=== PATIENT | female | born 1950 | race Caucasian/White ===

== ENCOUNTER 2018-05-18 21:17 | Outpatient (REF) | payer MEDICARE, SELFPAY ==
[2018-05-18 22:09] LABS: ALT 24 U/L (12-78); AST 17 U/L (15-37); Albumin 3.9 g/dL (3.4-5.0); Alkaline Phosphatase 53 U/L (46-116); Anion Gap 11.7 mmol/L (3-11); BUN 22 mg/dL (7-18); Bilirubin, Total 0.5 mg/dL (0.2-1.0); CO2 25.3 mmol/L (21.0-32.0); CREATININE 0.84 mg/dL (0.55-1.02); Calcium 9.1 mg/dL (8.5-10.1); Chloride 107 mmol/L (98-107); Glucose 87 mg/dL (70-100); Potassium 3.9 mmol/L (3.5-5.1); Sodium 144 mmol/L (136-145); Total Protein 6.9 g/dL (6.4-8.2)
[2018-05-18 22:14] LABS: Abs Immature Grans 0.03 k/cumm (0.0-0.09); Absolute Basophil Count 0.02 k/cumm (0.0-0.2); Absolute Eosinophil Count 0.15 k/cumm (0.0-0.7); Absolute Lymphocyte Count 2.33 k/cumm (1.2-3.4); Absolute Monocyte Count 1.02 k/cumm (0.11-0.7); Absolute Neutrophil Count 6.66 k/cumm (1.2-6.7); Basophils % 0.2; Eosinophils % 1.5; HCT 39.2 % (36.0-46.0); Immature Grans % 0.3; Lymphocytes % 22.8; Mean Corp. HGB Concentration 33.2 g/dL (32.0-36.0); Mean Corpuscular Hemoglobin 30.1 pg (27.0-33.0); Mean Corpuscular Volume 90.7 fL (80-95); Mean Platelet Volume 10.6 fL (8.0-11.0); Neutrophils % 65.2; Platelet Count 260 x1000/uL (130-400); RBC 4.32 m/cumm (4.00-5.20); RBC Distribution Width 13.4 % (11.7-14.6); White Blood Cell Count 10.21 k/cumm (4.4-10.8)
== END 2018-05-18 21:18 ==
LOC: NCHCN 21:17
PROVIDERS: PCP Family Medicine; Visit Provider Family Medicine
DX: C64.9 Malignant neoplasm of unspecified kidney, except renal pelvis (principal); K86.89 Other specified diseases of pancreas
CPT/HCPCS: 80053; 85025

== ENCOUNTER 2018-09-05 15:22 | Outpatient (REF) | payer MEDICARE, SELFPAY ==
[2018-09-05 22:20] LABS: Cholesterol 227 mg/dL (50-200); HDL Cholesterol 81 mg/dL (40-60); LDL CHOLESTEROL 127 mg/dL (<100); Triglyceride 115 mg/dL (30-150)
== END 2018-09-05 15:42 ==
LOC: NCHCN 15:22
PROVIDERS: PCP Family Medicine; Visit Provider Family Medicine
DX: E78.5 Hyperlipidemia, unspecified (principal)
CPT/HCPCS: 80061; 83721

== ENCOUNTER 2019-11-27 13:12 | Outpatient (REF) | payer MEDICARE, SELFPAY ==
[2019-11-27 21:42] LABS: Anion Gap 9.5 mmol/L (3-11); BUN 14 mg/dL (7-18); CO2 28.5 mmol/L (21.0-32.0); CREATININE 0.68 mg/dL (0.55-1.02); Calcium 9.5 mg/dL (8.5-10.1); Chloride 105 mmol/L (98-107); Glucose 83 mg/dL (74-106); Potassium 4.3 mmol/L (3.5-5.1); Sodium 143 mmol/L (136-145)
== END 2019-11-27 13:32 ==
LOC: NCHCN 13:12
PROVIDERS: PCP Nurse Practitioner Community Health; Visit Provider Nurse Practitioner Community Health
DX: E78.5 Hyperlipidemia, unspecified (principal)
CPT/HCPCS: 80048; 80053; 80061

== ENCOUNTER 2019-12-06 11:29 | Outpatient (REF) | payer MEDICARE, SELFPAY ==
[2019-12-06 23:21] LABS: ALT 27 U/L (14-59); AST 17 U/L (15-37); Alkaline Phosphatase 57 U/L (46-116); BUN 11 mg/dL (7-18); Bilirubin, Total 0.6 mg/dL (0.2-1.0); CREATININE 0.71 mg/dL (0.55-1.02); Calcium 9.3 mg/dL (8.5-10.1); Calculated LDL 143 mg/dL (<100); Chloride 106 mmol/L (98-107); Cholesterol 234 mg/dL (<200); Glucose 101 mg/dL (74-106); HDL Cholesterol 82 mg/dL (40-60); Sodium 143 mmol/L (136-145); Total Protein 6.7 g/dL (6.4-8.2); Triglyceride 47 mg/dL (<150)
== END 2019-12-06 11:49 ==
LOC: NCHCN 11:29
PROVIDERS: PCP Nurse Practitioner Community Health; Visit Provider Nurse Practitioner Community Health
DX: E78.5 Hyperlipidemia, unspecified (principal)
CPT/HCPCS: 80053; 80061

== ENCOUNTER 2022-06-26 15:07 | Outpatient (REF) | payer MEDICARE, SELFPAY ==
[2022-06-26 15:53] LABS: Abs Immature Grans 0.02 10^3/uL (0.0-0.06); Absolute Basophil Count 0.04 10^3/uL (0.0-0.2); Absolute Lymphocyte Count 1.86 10^3/uL (1.2-3.4); Absolute Monocyte Count 0.49 10^3/uL (0.1-0.8); Absolute Neutrophil Count 3.29 10^3/uL (1.2-6.7); Basophils % 0.7; Eosinophils % 1.7; HCT 39.8 % (36.0-46.0); HGB 13.2 g/dL (11.2-15.7); Immature Grans % 0.3; Lymphocytes % 32.1; MCH 30.6 pg (27.0-33.0); MCHC 33.2 % (32.0-36.0); MCV 92 fL (80-95); MPV 9.8 fL (8.0-11.0); Monocytes % 8.4; Neutrophils % 56.8; Platelet Count 308 10^3/uL (130-400); RBC 4.31 10^6/uL (3.93-5.22); RDW-SD 40.8 fL
[2022-06-26 16:32] LABS: Hemoglobin A1C 5.7 % (<5.7)
[2022-06-26 16:36] LABS: ALT 29 U/L (14-59); AST 26 U/L (15-37); Albumin 3.8 g/dL (3.4-5.0); Alkaline Phosphatase 54 U/L (46-116); Anion Gap 8.5 mmol/L (3-11); BUN 17 mg/dL (7-18); Bilirubin, Total 0.4 mg/dL (0.2-1.0); CO2 27.5 mmol/L (21.0-32.0); CREATININE 0.7 mg/dL (0.55-1.02); Calcium 9.5 mg/dL (8.5-10.1); Calculated LDL 124 mg/dL (<100); Chloride 105 mmol/L (98-107); Cholesterol 219 mg/dL (<200); Estimated GFR 91.26 (mL/min/1.73m2); Glucose 107 mg/dL (74-106); HDL Cholesterol 87 mg/dL (40-60); Potassium 4.3 mmol/L (3.5-5.1); Sodium 141 mmol/L (136-145); Total Protein 7.4 g/dL (6.4-8.2); Triglyceride 42 mg/dL (<150)
== END 2022-06-26 15:08 | disposition home or self-care (01) ==
LOC: NCHCN 15:07
PROVIDERS: PCP Nurse Practitioner Community Health; Visit Provider Family Medicine
DX: E78.5 Hyperlipidemia, unspecified (principal); K64.8 Other hemorrhoids; K86.89 Other specified diseases of pancreas; Z86.010 Personal history of colon polyps; I10 Essential (primary) hypertension; E66.3 Overweight
CPT/HCPCS: 80053; 80061; 83036; 85025

== ENCOUNTER 2022-11-27 18:43 | Outpatient (REF) | payer MEDICARE, SELFPAY ==
[2022-11-27 15:24] LABS: Calculated LDL 126 mg/dL (<100); Cholesterol 215 mg/dL (<200); HDL Cholesterol 77 mg/dL (40-60); Triglyceride 60 mg/dL (<150)
== END 2022-11-27 18:44 | disposition home or self-care (01) ==
LOC: NCHCN 18:43
PROVIDERS: PCP Nurse Practitioner Community Health; Visit Provider Family Medicine
DX: E78.5 Hyperlipidemia, unspecified (principal)
CPT/HCPCS: 80061

== ENCOUNTER 2023-03-05 14:17 | Outpatient (REF) | payer MEDICARE, SELFPAY ==
[2023-03-05 16:38] LABS: Calculated LDL 114 mg/dL (<100); Cholesterol 203 mg/dL (<200); HDL Cholesterol 83 mg/dL (40-60); Triglyceride 32 mg/dL (<150)
== END 2023-03-05 14:18 | disposition home or self-care (01) ==
LOC: NCHCN 14:17
PROVIDERS: PCP Nurse Practitioner Community Health; Visit Provider Family Medicine
DX: E78.5 Hyperlipidemia, unspecified (principal)
CPT/HCPCS: 80061

== ENCOUNTER 2023-05-06 18:03 | Outpatient (REF) | payer MEDICARE, SELFPAY ==
[2023-05-06 21:21] LABS: Anion Gap 7.8 mmol/L (3-11); BUN 20 mg/dL (7-18); CO2 28.2 mmol/L (21.0-32.0); CREATININE 0.7 mg/dL (0.55-1.02); Chloride 105 mmol/L (98-107); Glucose 78 mg/dL (74-106); Magnesium 2.4 mg/dL (1.8-2.4); Potassium 4.1 mmol/L (3.5-5.1); Sodium 141 mmol/L (136-145)
[2023-05-06 21:57] LABS: Calcium 9.8 mg/dL (8.5-10.1); TSH (W/Ref FT4) 1.39 uIU/mL (0.36-3.74)
== END 2023-05-06 18:04 | disposition home or self-care (01) ==
LOC: NCHCN 18:03
PROVIDERS: PCP Nurse Practitioner Community Health; Visit Provider Family Medicine
DX: R00.2 Palpitations (principal); R25.2 Cramp and spasm
CPT/HCPCS: 80048; 83735; 84443

== ENCOUNTER 2023-07-05 16:14 | Outpatient (REF) | payer MEDICARE, SELFPAY ==
[2023-07-05 14:53] LABS: Hemoglobin A1C 5.6 % (<5.7)
[2023-07-05 14:59] LABS: ALT 25 U/L (14-59); AST 19 U/L (15-37); Albumin 3.6 g/dL (3.4-5.0); Alkaline Phosphatase 53 U/L (46-116); Anion Gap 7.6 mmol/L (3-11); BUN 11 mg/dL (7-18); Bilirubin, Total 0.5 mg/dL (0.2-1.0); CO2 26.4 mmol/L (21.0-32.0); CREATININE 0.7 mg/dL (0.55-1.02); Calcium 9.6 mg/dL (8.5-10.1); Calculated LDL 125 mg/dL (<100); Chloride 106 mmol/L (98-107); Cholesterol 225 mg/dL (<200); Estimated GFR 90.14 (mL/min/1.73m2); Glucose 115 mg/dL (74-106); HDL Cholesterol 91 mg/dL (40-60); Potassium 3.9 mmol/L (3.5-5.1); Sodium 140 mmol/L (136-145); Triglyceride 46 mg/dL (<150)
== END 2023-07-05 16:15 | disposition home or self-care (01) ==
LOC: NCHCN 16:14
PROVIDERS: PCP Nurse Practitioner Community Health; Visit Provider Family Medicine
DX: E78.5 Hyperlipidemia, unspecified (principal); R73.03 Prediabetes; I10 Essential (primary) hypertension
CPT/HCPCS: 80053; 80061; 83036

== ENCOUNTER 2023-12-30 14:19 | Outpatient (REF) | payer MEDICARE, SELFPAY ==
[2023-12-30 16:07] LABS: Calculated LDL 120 mg/dL (<100); Cholesterol 208 mg/dL (<200); HDL Cholesterol 78 mg/dL (40-60); Triglyceride 54 mg/dL (<150)
[2023-12-30 17:09] LABS: Hemoglobin A1C 5.7 % (<5.7)
== END 2023-12-30 14:20 | disposition home or self-care (01) ==
LOC: NCHCN 14:19
PROVIDERS: PCP Nurse Practitioner Community Health; Visit Provider Family Medicine
DX: E78.5 Hyperlipidemia, unspecified (principal); I10 Essential (primary) hypertension; R73.03 Prediabetes
CPT/HCPCS: 80061; 83036

== ENCOUNTER 2024-10-23 13:29 | Outpatient (REF) | payer MEDICARE, SELFPAY ==
[2024-10-23 15:17] LABS: Abs Immature Grans 0.01 10^3/uL (0.0-0.06); Absolute Basophil Count 0.04 10^3/uL (0.0-0.2); Absolute Eosinophil Count 0.05 10^3/uL (0.0-0.7); Absolute Lymphocyte Count 2.17 10^3/uL (1.2-3.4); Absolute Monocyte Count 0.57 10^3/uL (0.1-0.8); Absolute Neutrophil Count 3.89 10^3/uL (1.2-6.7); Basophils % 0.6 %; Eosinophils % 0.7 %; HCT 43.5 % (36.0-46.0); HGB 14.3 g/dL (11.2-15.7); Immature Grans % 0.1 %; Lymphocytes % 32.2 %; MCH 30.4 pg (27.0-33.0); MCHC 32.9 % (32.0-36.0); MCV 92 fL (80-95); MPV 10.2 fL (8.0-11.0); Monocytes % 8.5 %; Neutrophils % 57.9 %; Platelet Count 332 10^3/uL (130-400); RBC 4.71 10^6/uL (3.93-5.22); RDW 11.8 % (11.7-14.6); RDW-SD 40.2 fL; WBC 6.73 10^3/uL (4.4-10.8)
[2024-10-23 15:54] LABS: ALT 24 U/L (14-59); AST 25 U/L (15-37); Albumin 4.1 g/dL (3.4-5.0); Alkaline Phosphatase 52 U/L (46-116); Anion Gap 6.1 mmol/L (3-11); BUN 12 mg/dL (7-18); Bilirubin, Total 0.57 mg/dL (0.2-1.0); CO2 29.9 mmol/L (21.0-32.0); CREATININE 0.7 mg/dL (0.55-1.02); Calcium 10.6 mg/dL (8.5-10.1); Calculated LDL 114 mg/dL (<100); Chloride 106 mmol/L (98-107); Cholesterol 218 mg/dL (<200); Estimated GFR 89.58 (mL/min/1.73m2); Glucose 106 mg/dL (74-106); HDL Cholesterol 93 mg/dL (40-60); Potassium 4.3 mmol/L (3.5-5.1); Sodium 142 mmol/L (136-145); Total Protein 7.6 g/dL (6.4-8.2); Triglyceride 55 mg/dL (<150)
[2024-10-23 17:22] LABS: Lipase 51 U/L (<78)
== END 2024-10-23 13:30 | disposition home or self-care (01) ==
LOC: NCHCN 13:29
PROVIDERS: PCP Nurse Practitioner Community Health; Visit Provider Family Medicine
DX: E78.5 Hyperlipidemia, unspecified (principal); R53.83 Other fatigue
CPT/HCPCS: 80053; 80061; 83690; 85025

== ENCOUNTER 2025-04-19 08:27 | Outpatient (REF) | payer MEDICARE, SELFPAY ==
[2025-04-19 16:46] LABS: Calculated LDL 134 mg/dL (<100); Cholesterol 220 mg/dL (<200); HDL Cholesterol 80 mg/dL (>or=50); Triglyceride 33 mg/dL (<150)
== END 2025-04-19 08:28 | disposition home or self-care (01) ==
LOC: NCHCN 08:27
PROVIDERS: PCP Nurse Practitioner Community Health; Visit Provider Family Medicine
DX: E78.5 Hyperlipidemia, unspecified (principal)
CPT/HCPCS: 80061